=== PATIENT | female | born 1935 | race Caucasian/White ===

== ENCOUNTER 2017-03-24 10:49 | Inpatient (IN) | payer OTHER ==
--- NOTE | 2017-03-24 11:45 | PDOC ---
History of Present Illness - History of Present Illness Initial Comments: 03/24/17 12:10 Patient is an 81 year old female with significant medical hx of asthma and HTN who is presenting to the ED for weakness and dizziness. Patient reports shes had several falls over the past few weeks. The patients first fall occurred 2 weeks ago with reported head trauma. She received a Head CT as an outpatient on 03/17 that was negative (impression below). Family member reports that the patient has had two falls since then. The patient complains of generalized weakness and dizziness but denies any chest pain, nausea, vomiting, fevers, or chills. She also reports decreased appetite and she has not been able to eat; today the patient only had a glass of water and yesterday a small bowl of soup. Today the patient called her PCP who referred her to the ED for hospital admission. Denies pain or syncope. Patient also reports some shortness of breath which she reports is chronic. The patient received a head CT on 03/17/17 as an outpatient which revealed No evidence of acute intracranial pathology as reported by Richie Jimenez MD. PCP Blaise Mcdonnell MD <Yaquelin Cooper - Last Filed: 03/24/17 12:10> <Kaylee Todd - Last Filed: 03/24/17 12:36> - General Chief Complaint: Weakness Stated Complaint: SENT BY PCP Time Seen by Provider: 03/24/17 11:10 Past History <Yaquelin Cooper - Last Filed: 03/24/17 12:10> - Past Medical History HTN: Yes - Psycho/Social/Smoking Cessation Hx Suicidal Ideation: No Smoking History: Former smoker Have you smoked in the past 12 months: No If you are a former smoker, when did you quit?: 40 YEARS AGO Information on smoking cessation initiated: No Hx Alcohol Use: No Drug/Substance Use Hx: No <Kaylee Todd - Last Filed: 03/24/17 12:36> - Past Medical History Allergies/Adverse Reactions: Allergies Allergy/AdvReac Type Severity Reaction Status Date / Time No Known Allergies Allergy Verified 03/24/17 11:04 Home Medications: Ambulatory Orders Albuterol Sulfate [Proair Respiclick] 90 mcg IAR PRN 03/24/17 Amlodipine Besylate 5 mg PO DAILY 03/24/17 Apixaban [Eliquis] 5 mg PO BID 03/24/17 Benazepril HCl 40 mg PO DAILY 03/24/17 Furosemide 20 mg PO DAILY 03/24/17 Metoprolol Tartrate 25 mg PO BID 03/24/17 Omeprazole 20 mg PO DAILY 03/24/17 Raloxifene HCl 60 mg PO DAILY 03/24/17 Simvastatin 20 mg PO DAILY 03/24/17 Review of Systems - Review of Systems Comments:: 03/24/17 12:11 GENERAL/CONSTITUTIONAL: Weakness. No fe.kanwal or chills. HEAD, EYES, EARS, NOSE AND THROAT: No change in vision. No ear pain or discharge. No sore throat. CARDIOVASCULAR: Shortness of breath (chronic) No chest pain. RESPIRATORY: No cough, wheezing, or hemoptysis. GASTROINTESTINAL: No nausea, vomiting, diarrhea or constipation. GENITOURINARY: No dysuria, frequency, or change in urination. MUSCULOSKELETAL: No joint or muscle swelling or pain. No neck or back pain. ENDOCRINE: No increased thirst. No abnormal weight change. SKIN: No rash NEUROLOGIC: Dizziness. No headache, loss of consciousness, or change in strength /sensation. <Yaquelin Cooper - Last Filed: 03/24/17 12:10> *Physical Exam - Vital Signs Last Vital Signs Temp Pulse Resp BP Pulse Ox 65 18 147/69 95 03/24/17 10:59 03/24/17 10:59 03/24/17 10:59 03/24/17 10:59 - Physical Exam Comments: 03/24/17 12:12 GENERAL: Awake, alert, and fully oriented, in no acute distress HEAD: No signs of trauma EYES: PERRLA, EOMI, sclera anicteric, conjunctiva clear ENT: Auricles normal inspection, hearing grossly normal, nares patent, oropharynx clear without exudates. Moist mucosa NECK: Normal ROM, supple, no lymphadenopathy, JVD, or masses LUNGS: Breath sounds equal, clear to auscultation bilaterally. No wheezes, and no crackles HEART: Regular rate and rhythm, normal S1 and S2, no murmurs, rubs or gallops ABDOMEN: Soft, nontender, normoactive bowel sounds. No guarding, no rebound. No masses EXTREMITIES: Normal range of motion, no edema. No clubbing or cyanosis. No cords, erythema, or tenderness NEUROLOGICAL: Essential tremor. Cranial nerves II through XII grossly intact. Normal speech, normal gait SKIN: Warm, Dry, normal turgor, no rashes or lesions noted. HEMATOLOGIC/LYMPHATIC: No anemia, easy bleeding, or history of blood clots. ALLERGIC/IMMUNOLOGIC: No hives or skin allergy. <Yaquelin Cooper - Last Filed: 03/24/17 12:10> - Vital Signs Last Vital Signs Temp Pulse Resp BP Pulse Ox 65 18 147/69 95 03/24/17 10:59 03/24/17 10:59 03/24/17 10:59 03/24/17 10:59 <Kaylee Todd - Last Filed: 03/24/17 12:36> ED Treatment Course - LABORATORY CBC & Chemistry Diagram: 03/24/17 11:50 03/24/17 11:50 - ADDITIONAL ORDERS Additional order review: Laboratory Results 03/24/17 11:25 POC Glucometer [id number] 03/24/17 03/24/17 11:50 11:25 RBC 3.99 MCV 103.2 H MCHC 33.0 RDW 14.2 MPV 8.9 Neutrophils % 62.1 Lymphocytes % 25.4 Monocytes % 10.7 H Eosinophils % 1.1 Basophils % 0.7 POC Glucometer [id number] <Yaquelin Cooper - Last Filed: 03/24/17 12:10> - LABORATORY CBC & Chemistry Diagram: 03/24/17 11:50 03/24/17 11:50 <Kaylee Todd - Last Filed: 03/24/17 12:36> Medical Decision Making - Medical Decision Making 03/24/17 12:32 Patient presents to the ED after sent in by her PMD for frequent falls and decreased PO intake at home. Patient denies complaints except for decreased appetite and lightheadness. I have discussed the case with the patient's primary care doctor, and he feels that the patient is unsafe at home and needs admission for failure to thrive. Recent CT Head negative--patient has not fallen since. Will admit to hospitalist service. Case discussed and accepted by Dr. Lawrence Knight. <Kaylee Todd - Last Filed: 03/24/17 12:36> *DC/Admit/Observation/Transfer - Attestations Scribe Attestion: 03/24/17 12:12 Documentation prepared by Yaquelin Cooper, acting as medical coder for Kaylee Todd MD. <Yaquelin Cooper - Last Filed: 03/24/17 12:10> - Discharge Dispostion Admit: Yes Decision to Admit order Date/Time: 03/24/17 12:35 <Kaylee Todd - Last Filed: 03/24/17 12:36> Diagnosis at time of Disposition: Failure to thrive in adult
[2017-03-24 11:57] LABS: BASOPHIL 0.7 % (0-2.0); EOSINOPHIL 1.1 % (0-4.5); MCH 34.1 pg (25.7-33.7); MEAN CELL VOLUME 103.2 fl (80-96); MEAN PLT VOLUME 8.9 fl (7.5-11.1); NEUTROPHILS 62.1 % (42.8-82.8); PLATELET COUNT 222 K/MM3 (134-434); RDW 14.2 % (11.6-15.6); WHITE BLOOD COUNT 6.1 K/mm3 (4.0-10.0)
[2017-03-24 12:22] LABS: ANION GAP 10 (8-16); BILIRUBIN,TOTAL 0.6 mg/dL (0.2-1.0); CALCIUM 9.2 mg/dL (8.5-10.1); CO2 26 mmol/L (21-32); GLUCOSE,RANDOM 98 mg/dL (74-106); SGOT/AST 27 U/L (15-37); SGPT/ALT 38 U/L (12-78); TOT PROT 7.4 g/dl (6.4-8.2)
[2017-03-24 12:24] LABS: ALK PHOS 73 U/L (45-117); TROPONIN I < 0.02 ng/ml (0.00-0.05)
[2017-03-24 13:04] LABS: THYROID STIMULATING HORMONE 2.96 uIU/ml (0.358-3.74)
[2017-03-24] MEDS ORDERED: PATIENT'S OWN MEDICATION (NON-FORMULARY) (Albuterol Sulfate [Proair Respiclick] 90 MCG) IAR SCH (14:00)
[2017-03-24] MEDS: ACETAMINOPHEN 325 MG TABLET (FP) PO PRN (14:13)
--- NOTE | 2017-03-24 18:26 | CON.CARD ---
Cardiology Consult (text) - Consultation Consultation Note: 81 yo with h/o of afib on eliquis, htn, asthma who presents s/p fall/syncope. Patient reports shes had 3 falls in the past 2 weeks. all episodes appear to be syncopal with no prodrome. She also reports worsened weakness since February with + orthopnea (cough with lying down), worsened chronic sanchez and early satiety. at baseline can't walk uphill. Currently can walk only a half block. Chronic palps stable. Intermitent Le edema currently resolved. no cp, bleeding on eliquis, transient neurologic symptoms no f/c/s, n/v/d, headache, rashes, visual disturbances, congestion. recently returned from winter in [place] pmhx/pxhx: per hpi social hx: Former smoker fam hx: no premature cad, ros: per hpi Ambulatory Orders Albuterol Sulfate [Proair Respiclick] 90 mcg IAR PRN 03/24/17 Amlodipine Besylate 5 mg PO DAILY 03/24/17 Apixaban [Eliquis] 5 mg PO BID 03/24/17 Benazepril HCl 40 mg PO DAILY 03/24/17 Furosemide 20 mg PO DAILY 03/24/17 Metoprolol Tartrate 25 mg PO BID 03/24/17 Omeprazole 20 mg PO DAILY 03/24/17 Raloxifene HCl 60 mg PO DAILY 03/24/17 Simvastatin 20 mg PO DAILY 03/24/17 Current Medications Acetaminophen (Tylenol -) 650 mg PO Q4H PRN PRN Reason: FEVER OR PAIN Last Admin: 03/24/17 14:13 Dose: 650 mg Amlodipine Besylate (Norvasc -) 5 mg PO DAILY [facility] Aspirin (Asa -) 81 mg PO DAILY [facility] Atorvastatin Calcium (Lipitor -) 10 mg PO HS [facility] Furosemide (Lasix -) 20 mg PO DAILY [facility] Heparin Sodium (Porcine) (Heparin -) 5,000 unit SQ BID [facility] Lisinopril (Prinivil) 40 mg PO DAILY [facility] Metoprolol Tartrate (Lopressor -) 25 mg PO BID [facility] Non-Formulary Medication (Albuterol Sulfate [Proair Respiclick]) 90 mcg IAR PRN [facility] Non-Formulary Medication (Raloxifene Hcl [Raloxifene Hcl]) 60 mg PO DAILY [facility] Pantoprazole Sodium (Protonix -) 20 mg PO DAILY [facility] Vital Signs - 24 hr 03/24/17 03/24/17 03/24/17 10:59 11:05 15:42 Temperature 97.8 F 98.4 F Pulse Rate 65 Pulse Rate [ 68 68 Left Apical] Respiratory 18 16 16 Rate Blood Pressure 147/69 Blood Pressure 174/89 158/94 [Left Arm] O2 Sat by Pulse 95 96 96 Oximetry (%) Intake & Output 03/22/17 03/23/17 03/24/17 03/25/17 07:59 07:59 07:59 07:59 Weight 200 lb nad, calm bruising over face jvd flat, neck supple bibasilar crackles, nl effort irregularly irregulary. soft 1/6 sys murmur at rusb + bs soft nt nd ext without e/c/c aaox3 no jaundice, diaphoresis no carotid bruits CBC, BMP 03/24/17 11:50 03/24/17 11:50 Laboratory Tests 03/24/17 11:50 Total Bilirubin 0.6 AST 27 ALT 38 Alkaline Phosphatase 73 Creatine Kinase 292 H CK-MB (CK-2) 3.586 Troponin I < 0.02 Albumin 4.0 TSH 2.96 ekg: afib. low voltage qrs. Non-specific t wave ab. no acute ischemic changes cxr: no acute abnormalities per report. by my review: poor inspiration, poor visualization of left base (can't rule out effusion) 81 yo with h/o of afib on eliquis, htn, asthma who presents s/p fall/syncope. fall/syncope - no prodrome with facial bruising on exam. Would recommend continous telemetry monitoring to eval for arrhythmia - echo, carotid ultrasound - pt - leonardo - othostatic vitals, monitor for hypotension. afib - rate controlled on home metoprolol, con't - con't eliquis now while syncopal work up/fall risk assessment ongoing. Then reassess risk/benefit of AC. weakness - pt with worsening sanchez, early satiety and rales on exam which appear consistent with volume overload. - patient on lasix at home ? for venous insufficiency, no history of heart failure. - Would evaluate for heart failure as etiology with echo, bnp. give trial of IV lasix in am. - infectious and further work up per pmd. HTN - reasonable control for age, continue current meds. But unclear if she received her medications. monitor for hypotension and need to downtitrate current regimen. HL - statin
[2017-03-24 20:31] VITALS: BMI 31.8
[2017-03-24] MEDS: ATORVASTATIN CA 10 MG TABLET (FP) PO SCH (21:55)
[2017-03-24] MEDS: METOPROLOL TARTRATE 25 MG TABLET (FP) PO SCH (21:55)
[2017-03-24 22:01] LABS: URINE APPEARANCE SLCLOUDY; URINE BILIRUBIN NEGATIVE (NEGATIVE); URINE BLOOD NEGATIVE (NEGATIVE); URINE COLOR LTYELLOW; URINE GLUCOSE (UA) NEGATIVE (NEGATIVE); URINE KETONE NEGATIVE (NEGATIVE); URINE NITRITE NEGATIVE (NEGATIVE); URINE PROTEIN NEGATIVE (NEGATIVE); URINE UROBILINOGEN NEGATIVE E.U./dl (0.2-1.0)
[2017-03-24 22:02] LABS: URINE LEUK ESTERASE TRACE (NEGATIVE)
[2017-03-24 22:03] LABS: URINE BACTERIA RARE /hpf (NONE SEEN); URINE MUCUS RARE; URINE RBC 1 /hpf (0-3); URINE WBC 33 /hpf (3-5)
[2017-03-25] MEDS: ACETAMINOPHEN 325 MG TABLET (FP) PO PRN (05:23)
[2017-03-25 07:09] LABS: BASOPHIL 0.7 % (0-2.0); MCH 34.7 pg (25.7-33.7); MCHC 33.7 g/dl (32.0-36.0); MEAN PLT VOLUME 9.2 fl (7.5-11.1); NEUTROPHILS 64.3 % (42.8-82.8); PLATELET COUNT 210 K/MM3 (134-434); RDW 14.3 % (11.6-15.6); WHITE BLOOD COUNT 6.9 K/mm3 (4.0-10.0)
[2017-03-25 07:42] LABS: CALCIUM 8.9 mg/dL (8.5-10.1)
[2017-03-25 07:48] LABS: ALBUMIN 3.5 g/dl (3.4-5.0); BILIRUBIN,TOTAL 0.6 mg/dL (0.2-1.0); COCKROFT - GAULT 62.1435; TOT PROT 6.5 g/dl (6.4-8.2)
[2017-03-25] MEDS ORDERED: HEPARIN NA (PORCINE) 5,000 UNITS/ML 1ML VIAL IVPUSH PRN (08:29)
[2017-03-25] MEDS ORDERED: HEPARIN - 25,000 UNIT in SODIUM CHLORIDE 495 ML IV SCH (08:30)
[2017-03-25] MEDS ORDERED: HEPARIN NA (PORCINE) 5,000 UNITS/ML 1ML VIAL SQ SCH (09:00)
[2017-03-25] MEDS ORDERED: ASPIRIN 81 MG CHEWABLE TABLETS PO SCH (10:00)
[2017-03-25] MEDS ORDERED: PATIENT'S OWN MEDICATION (NON-FORMULARY) (Raloxifene Hcl [Raloxifene Hcl] 60 MG) PO SCH (10:00)
[2017-03-25] MEDS ORDERED: PATIENT'S OWN MEDICATION (NON-FORMULARY) (Benazepril Hcl [Benazepril Hcl] 40 MG) PO SCH (10:00)
[2017-03-25] MEDS ORDERED: FUROSEMIDE 20 MG TABLET (FP) PO SCH (10:00)
[2017-03-25] MEDS ORDERED: PATIENT'S OWN MEDICATION (NON-FORMULARY) (Simvastatin [Simvastatin] 20 MG) PO SCH (10:00)
[2017-03-25] MEDS ORDERED: PATIENT'S OWN MEDICATION (NON-FORMULARY) (Omeprazole 20 MG) PO SCH (10:00)
[2017-03-25] MEDS: METOPROLOL TARTRATE 25 MG TABLET (FP) PO SCH ×2 (10:35→21:46)
[2017-03-25] MEDS: LISINOPRIL 20 MG TABLET (FP) PO SCH (10:36)
[2017-03-25] MEDS: amLODIPine BESYLATE 5 MG TABLET (FP) PO SCH (10:36)
[2017-03-25] MEDS: PANTOPRAZOLE 20 MG TABLET (FP) PO SCH (10:36)
[2017-03-25] MEDS: FUROSEMIDE 40 MG/4 ML INJECTABLE VIAL IVPUSH SCH (10:40)
--- NOTE | 2017-03-25 10:51 | HP ---
Admitting History and Physical - Primary Care Physician PCP: Blaise Mcdonnell - Admission Chief Complaint: frequent falls History of Present Illness: ER HISTORY - History of Present Illness Initial Comments: 03/24/17 12:10 Patient is an 81 year old female with significant medical hx of asthma and HTN who is presenting to the ED for weakness and dizziness. Patient reports shes had several falls over the past few weeks. The patients first fall occurred 2 weeks ago with reported head trauma. She received a Head CT as an outpatient on 03/17 that was negative (impression below). Family member reports that the patient has had two falls since then. The patient complains of generalized weakness and dizziness but denies any chest pain, nausea, vomiting, fevers, or chills. She also reports decreased appetite and she has not been able to eat; today the patient only had a glass of water and yesterday a small bowl of soup. Today the patient called her PCP who referred her to the ED for hospital admission. Denies pain or syncope. Patient also reports some shortness of breath which she reports is chronic. The patient received a head CT on 03/17/17 as an outpatient which revealed No evidence of acute intracranial pathology as reported by Richie iJmenez MD. PCP Blaise Mcdonnell MD Pt examined by me in ER Spoke with Dr Mcdonnell Pt has been having frequent falls, head injuries. No LOC.No headaches, chest pain, palpitations, dizziness. at bedside History Source: Patient, Family Member, Medical Record Limitations to Obtaining History: No Limitations - Past Medical History Cardiovascular: Yes: AFIB, HTN Pulmonary: Yes: Asthma - Smoking History Smoking history: Former smoker Have you smoked in the past 12 months: No If you are a former smoker, when did you quit?: 40 YEARS AGO - Alcohol/Substance Use Hx Alcohol Use: No Home Medications - Allergies Allergies/Adverse Reactions: Allergies Allergy/AdvReac Type Severity Reaction Status Date / Time No Known Allergies Allergy Verified 03/24/17 11:04 - Home Medications Home Medications: Ambulatory Orders Albuterol Sulfate [Proair Respiclick] 90 mcg IAR PRN 03/24/17 Amlodipine Besylate 5 mg PO DAILY 03/24/17 Apixaban [Eliquis] 5 mg PO BID 03/24/17 Benazepril HCl 40 mg PO DAILY 03/24/17 Furosemide 20 mg PO DAILY 03/24/17 Metoprolol Tartrate 25 mg PO BID 03/24/17 Omeprazole 20 mg PO DAILY 03/24/17 Raloxifene HCl 60 mg PO DAILY 03/24/17 Simvastatin 20 mg PO DAILY 03/24/17 Review of Systems - Review of Systems Constitutional: denies: Chills, Fever Cardiovascular: denies: Chest Pain, Palpitations Physical Examination Vital Signs: Vital Signs Temperature 98.2 F 03/25/17 09:52 Pulse Rate 70 03/25/17 09:52 Respiratory Rate 18 03/25/17 09:52 Blood Pressure 154/72 03/25/17 09:52 O2 Sat by Pulse Oximetry (%) 98 03/24/17 23:00 Constitutional: Yes: No Distress, Calm Cardiovascular: Yes: Pulse Irregular Respiratory: Yes: Diminished Gastrointestinal: Yes: Normal Bowel Sounds, Soft, Abdomen, Obese. No: Distention, Tenderness Edema: Yes Edema: LLE: Trace, RLE: Trace Neurological: Yes: Alert, Tremors Psychiatric: Yes: Alert, Oriented Labs: CBC, BMP 03/25/17 05:35 03/25/17 05:35 Imaging - Results Chest X-ray: Image Reviewed (no congestion) EKG: Image Reviewed Problem List - Problems (1) Failure to thrive in adult Code(s): R62.7 - ADULT FAILURE TO THRIVE (2) Frequent falls Code(s): R29.6 - REPEATED FALLS (3) Afib Code(s): I48.91 - UNSPECIFIED ATRIAL FIBRILLATION (4) Unsteady gait Code(s): R26.81 - UNSTEADINESS ON FEET Assessment/Plan PLAN spoke with Cardiology Will dc Heparin drip Pt has frequent falls-- high risk of intracranial bleeding Start ASA 81 mg daily, dc Anay spoke with rate control check Echo for LV function will need rehab placement pt has tremors - Possible Parkinsons? NEUROLOGY EVAL PT eval Heparin sc for DVT prophylaxis
--- NOTE | 2017-03-25 12:00 | PN ---
Progress Note, Physician History of Present Illness: No CV complaints No palps, CP dyspena - Current Medication List Current Medications: Active Medications Acetaminophen (Tylenol -) 650 mg PO Q4H PRN PRN Reason: FEVER OR PAIN Last Admin: 03/25/17 05:23 Dose: 650 mg Amlodipine Besylate (Norvasc -) 5 mg PO DAILY [facility] Last Admin: 03/25/17 10:36 Dose: 5 mg Aspirin (Asa -) 81 mg PO DAILY [facility] Atorvastatin Calcium (Lipitor -) 10 mg PO HS [facility] Last Admin: 03/24/17 21:55 Dose: 10 mg Furosemide (Lasix Injection -) 20 mg IVPUSH DAILY [facility] Last Admin: 03/25/17 10:40 Dose: 20 mg Lisinopril (Prinivil) 40 mg PO DAILY [facility] Last Admin: 03/25/17 10:36 Dose: 40 mg Metoprolol Tartrate (Lopressor -) 25 mg PO BID [facility] Last Admin: 03/25/17 10:35 Dose: 25 mg Non-Formulary Medication (Albuterol Sulfate [Proair Respiclick]) 90 mcg IAR PRN [facility] Non-Formulary Medication (Raloxifene Hcl [Raloxifene Hcl]) 60 mg PO DAILY [facility] Pantoprazole Sodium (Protonix -) 20 mg PO DAILY [facility] Last Admin: 03/25/17 10:36 Dose: 20 mg - Objective Vital Signs: Vital Signs Temperature 98.2 F 03/25/17 09:52 Pulse Rate 70 03/25/17 09:52 Respiratory Rate 18 03/25/17 09:52 Blood Pressure 154/72 03/25/17 09:52 O2 Sat by Pulse Oximetry (%) 98 03/24/17 23:00 Constitutional: Yes: No Distress Eyes: Yes: Other (periorbital ecchymosis (right)) Neck: Yes: WNL Cardiovascular: Yes: Pulse Irregular Respiratory: Yes: CTA Bilaterally Edema: Yes Edema: LLE: Trace, RLE: Trace Labs: CBC, BMP 03/25/17 05:35 03/25/17 05:35 Assessment/Plan 81 yo with h/o of afib on eliquis, htn, asthma who presents s/p fall/syncope. fall/syncope - no prodrome with facial bruising on exam. Would recommend continous telemetry monitoring to eval for arrhythmia - echo pending, carotid ultrasound without significant carotid stenosis afib - rate controlled on home metoprolol, con't - Off eliquis now while syncopal work up/fall risk assessment ongoing. Needs reassessment risk/benefit of AC given frequent falls.
--- NOTE | 2017-03-25 15:02 | CON.NEURO ---
Consult Consult Specialty:: Neurology-Peter PROCTOR Reason for Consultation:: Falls/Syncope - History of Present Illness Chief Complaint: Multiple Falls History of Present Illness: 81 yo with h/o of afib on eliquis, htn, asthma who presents s/p fall/syncope. Eliquis discontinued in hospital. Patient reports shes had 3 falls in the past 2 weeks. She reports 2 years ago she perceived unsteadiness of gait and started using a cane. She describes first falling 2 weeks ago, "felt dizzy and fell forwards, it ocurred twice subsequently, after fall there was no confusion/incontinence.All episodes appear to be syncopal with no prodrome. She also reports worsened weakness since February with + orthopnea (cough with lying down), worsened chronic sanchez and early satiety.At baseline can't walk uphill. Currently can walk only a half block. Chronic palps stable. Intermitent Le edema currently resolved. Pt. denies numbness/paresthesias in legs, denies chest pain, headaches, visual disturbances and all other neurologic symptoms. Recent CT head is reported "negative" in chart and she has not fallen since. - Alcohol/Substance Use Hx Alcohol Use: No - Smoking History Smoking history: Former smoker Have you smoked in the past 12 months: No If you are a former smoker, when did you quit?: 40 YEARS AGO Home Medications - Allergies Allergies/Adverse Reactions: Allergies Allergy/AdvReac Type Severity Reaction Status Date / Time No Known Allergies Allergy Verified 03/24/17 11:04 - Home Medications Home Medications: Ambulatory Orders Albuterol Sulfate [Proair Respiclick] 90 mcg IAR PRN 03/24/17 Amlodipine Besylate 5 mg PO DAILY 03/24/17 Apixaban [Eliquis] 5 mg PO BID 03/24/17 Benazepril HCl 40 mg PO DAILY 03/24/17 Furosemide 20 mg PO DAILY 03/24/17 Metoprolol Tartrate 25 mg PO BID 03/24/17 Omeprazole 20 mg PO DAILY 03/24/17 Raloxifene HCl 60 mg PO DAILY 03/24/17 Simvastatin 20 mg PO DAILY 03/24/17 Physical Exam-Neuro Vital Signs: Vital Signs Temperature 97.7 F 03/25/17 13:51 Pulse Rate 74 03/25/17 13:51 Respiratory Rate 18 03/25/17 13:51 Blood Pressure 126/66 03/25/17 13:51 O2 Sat by Pulse Oximetry (%) 98 03/24/17 23:00 Labs: CBC, BMP 03/25/17 05:35 03/25/17 05:35 - Neuro Exam Dominant Hand: Right Mini Mental Exam: Alert, well oriented, without aphasia. Her concentration is impaired, she tends to forget what she wants to say at times. Rayne recall her phone #, recalls 1/3 objects in 1 and 5 minutes. Cranial Nerves II-XII Intact: No (Slight old left facial droop) DTR's: 0 Left Achilles, 0 Right Achilles, 1+ Left Bicep (+Palmar reflex), 1+ Right Bicep, 1+ Left Tricep, 1+ Right Tricep, 1+ Left Brachioradialis, 1+ Right Brachioradialis Response to light touch: Normal Response to pain prick: Normal Movement Disorders: Tremors Motor Strength: 5/5: Right Arm, Left Arm, Left Leg (LLE 5/5 throughout except left quadriceps is 4/5. + bilateral UE postural tremors) Gait: Other (Wide based, unsteady, left foot is slightly externally rotated.) NIH Stroke Scale - Total Score NIH Stroke Scale Score: 0 Assessment/Plan Pt. with falls, given her description of falls and hx. of afib likely falling due to syncopal episodes. She has slight left leg weakness that is old, not cause of her falls but certainly a precipitating factor. Suggest:MRI brain without contrast to see if she has had infarcts. Cont. ASA Thank you, Janeen Green MD
[2017-03-25] MEDS: ATORVASTATIN CA 10 MG TABLET (FP) PO SCH (21:46)
[2017-03-25] MEDS: HEPARIN NA (PORCINE) 5,000 UNITS/ML 1ML VIAL SQ SCH (21:47)
--- NOTE | 2017-03-26 08:59 | PN ---
Progress Note, Physician Chief Complaint: Appears sleepy today as per nurse, she did not sleep well last night , trying to get OOB to use the bathroom on her own per nurse notes at side pt c/o constipation - Current Medication List Current Medications: Active Medications Acetaminophen (Tylenol -) 650 mg PO Q4H PRN PRN Reason: FEVER OR PAIN Last Admin: 03/25/17 05:23 Dose: 650 mg Amlodipine Besylate (Norvasc -) 5 mg PO DAILY [facility] Last Admin: 03/25/17 10:36 Dose: 5 mg Aspirin (Asa -) 81 mg PO DAILY [facility] Atorvastatin Calcium (Lipitor -) 10 mg PO HS [facility] Last Admin: 03/25/17 21:46 Dose: 10 mg Furosemide (Lasix Injection -) 20 mg IVPUSH DAILY [facility] Last Admin: 03/25/17 10:40 Dose: 20 mg Heparin Sodium (Porcine) (Heparin -) 5,000 unit SQ BID [facility] Last Admin: 03/25/17 21:47 Dose: 5,000 unit Lisinopril (Prinivil) 40 mg PO DAILY [facility] Last Admin: 03/25/17 10:36 Dose: 40 mg Metoprolol Tartrate (Lopressor -) 25 mg PO BID [facility] Last Admin: 03/25/17 21:46 Dose: 25 mg Non-Formulary Medication (Albuterol Sulfate [Proair Respiclick]) 90 mcg IAR PRN [facility] Non-Formulary Medication (Raloxifene Hcl [Raloxifene Hcl]) 60 mg PO DAILY [facility] Pantoprazole Sodium (Protonix -) 20 mg PO DAILY [facility] Last Admin: 03/25/17 10:36 Dose: 20 mg - Objective Vital Signs: Vital Signs Temperature 98.4 F 03/26/17 02:35 Pulse Rate 71 03/26/17 06:00 Respiratory Rate 16 03/26/17 06:00 Blood Pressure 123/71 03/26/17 06:00 O2 Sat by Pulse Oximetry (%) 99 03/25/17 22:07 Constitutional: Yes: No Distress, Other (decreased ecchymosis rt periorbital region) Cardiovascular: Yes: Pulse Irregular Respiratory: Yes: CTA Bilaterally Gastrointestinal: Yes: Normal Bowel Sounds, Soft. No: Distention, Tenderness Edema: No Labs: CBC, BMP 03/25/17 05:35 03/25/17 05:35 Problem List - Problems (1) Failure to thrive in adult Code(s): R62.7 - ADULT FAILURE TO THRIVE (2) Frequent falls Code(s): R29.6 - REPEATED FALLS (3) Afib Code(s): I48.91 - UNSPECIFIED ATRIAL FIBRILLATION (4) Unsteady gait Code(s): R26.81 - UNSTEADINESS ON FEET Assessment/Plan PLAN Pt has frequent falls-- high risk of intracranial bleeding Started on ASA 81 mg daily, dc Anay, risk of bleeding greater than benefits here in this case and is well aware of that spoke with rate control check Echo for LV function will need rehab placement NEUROLOGY EVAL noted -- MRI ordered PT eval Heparin sc for DVT prophylaxis
--- NOTE | 2017-03-26 09:33 | PN ---
Progress Note, Physician History of Present Illness: No CV events. Tele Afib 60s - Current Medication List Current Medications: Active Medications Acetaminophen (Tylenol -) 650 mg PO Q4H PRN PRN Reason: FEVER OR PAIN Last Admin: 03/25/17 05:23 Dose: 650 mg Amlodipine Besylate (Norvasc -) 5 mg PO DAILY [facility] Last Admin: 03/25/17 10:36 Dose: 5 mg Aspirin (Asa -) 81 mg PO DAILY [facility] Atorvastatin Calcium (Lipitor -) 10 mg PO HS [facility] Last Admin: 03/25/17 21:46 Dose: 10 mg Furosemide (Lasix Injection -) 20 mg IVPUSH DAILY [facility] Last Admin: 03/25/17 10:40 Dose: 20 mg Heparin Sodium (Porcine) (Heparin -) 5,000 unit SQ BID [facility] Last Admin: 03/25/17 21:47 Dose: 5,000 unit Lisinopril (Prinivil) 40 mg PO DAILY [facility] Last Admin: 03/25/17 10:36 Dose: 40 mg Metoprolol Tartrate (Lopressor -) 25 mg PO BID [facility] Last Admin: 03/25/17 21:46 Dose: 25 mg Non-Formulary Medication (Albuterol Sulfate [Proair Respiclick]) 90 mcg IAR PRN [facility] Non-Formulary Medication (Raloxifene Hcl [Raloxifene Hcl]) 60 mg PO DAILY [facility] Pantoprazole Sodium (Protonix -) 20 mg PO DAILY [facility] Last Admin: 03/25/17 10:36 Dose: 20 mg - Objective Vital Signs: Vital Signs Temperature 98.4 F 03/26/17 02:35 Pulse Rate 71 03/26/17 06:00 Respiratory Rate 16 03/26/17 06:00 Blood Pressure 123/71 03/26/17 06:00 O2 Sat by Pulse Oximetry (%) 99 03/25/17 22:07 Constitutional: Yes: No Distress (lethargic this AM but arrousable) Eyes: Yes: WNL HENT: Yes: WNL Neck: Yes: WNL Cardiovascular: Yes: Pulse Irregular Respiratory: Yes: CTA Bilaterally Gastrointestinal: Yes: WNL Edema: Yes Edema: LLE: 1+, RLE: 1+ Labs: CBC, BMP 03/25/17 05:35 03/25/17 05:35 Assessment/Plan 81 yo with h/o of afib on eliquis, htn, asthma who presents s/p fall/syncope. fall/syncope - no prodrome with facial bruising on exam. Would recommend continous telemetry monitoring to eval for arrhythmia - echo pending, carotid ultrasound without significant carotid stenosis afib - rate controlled on home metoprolol, con't - Off eliquis now while syncopal work up/fall risk assessment ongoing. -This patient is high risk for fall and therefore needs reassessment risk/ benefit of AC given frequent falls.
[2017-03-26] MEDS: ASPIRIN 81 MG CHEWABLE TABLETS PO SCH (09:58)
[2017-03-26] MEDS: HEPARIN NA (PORCINE) 5,000 UNITS/ML 1ML VIAL SQ SCH ×2 (09:58→21:25)
[2017-03-26] MEDS: METOPROLOL TARTRATE 25 MG TABLET (FP) PO SCH ×2 (09:59→21:25)
[2017-03-26] MEDS: FUROSEMIDE 40 MG/4 ML INJECTABLE VIAL IVPUSH SCH (09:59)
[2017-03-26] MEDS: PANTOPRAZOLE 20 MG TABLET (FP) PO SCH (09:59)
[2017-03-26] MEDS: LISINOPRIL 20 MG TABLET (FP) PO SCH (09:59)
[2017-03-26] MEDS: amLODIPine BESYLATE 5 MG TABLET (FP) PO SCH (09:59)
[2017-03-26] MEDS ORDERED: ALBUTEROL SO4 0.083% IH SOL 2.5 MG/3 ML VIAL.NEB. NEB PRN (10:45)
[2017-03-26] MEDS: POLYETHYLENE GLYCOL 3350 119 GM BTL PO SCH (12:10)
--- NOTE | 2017-03-26 16:35 | EKG ---
Test Reason : Blood Pressure : / mmHG Vent. Rate : 078 BPM Atrial Rate : 090 BPM P-R Int : 000 ms QRS Dur : 088 ms QT Int : 418 ms P-R-T Axes : 000 077 -12 degrees QTc Int : 476 ms POOR DATA QUALITY, INTERPRETATION MAY BE ADVERSELY AFFECTED PROBABLE NORMAL SINUS RHYTHM WITH SINUS ARRHYTHMIA LOW VOLTAGE QRS NONSPECIFIC T WAVE ABNORMALITY ABNORMAL ECG WHEN COMPARED WITH ECG OF 10-MAR-2006 09:41, BASELINE ARTIFACT MAKES COMPARISON PROBLEMATIC; SUGGEST REPEAT STUDY NONSPECIFIC T WAVE ABNORMALITY NOW EVIDENT IN LATERAL LEADS Confirmed by CHARLIE SAVAGE MD ([id number]) on 03/26/2017 4:34:59 PM Referred By: Confirmed By:CHARLIE SAVAGE MD
[2017-03-26] MEDS: ATORVASTATIN CA 10 MG TABLET (FP) PO SCH (21:25)
[2017-03-27 07:36] LABS: MCH 34.7 pg (25.7-33.7); MCHC 33.8 g/dl (32.0-36.0); MEAN CELL VOLUME 102.8 fl (80-96); MEAN PLT VOLUME 9.3 fl (7.5-11.1); PLATELET COUNT 195 K/MM3 (134-434); RDW 14.1 % (11.6-15.6); WHITE BLOOD COUNT 6.4 K/mm3 (4.0-10.0)
[2017-03-27 08:00] LABS: CALCIUM 8.9 mg/dL (8.5-10.1)
[2017-03-27 08:01] LABS: CREATININE 0.9 mg/dL (0.55-1.02)
--- NOTE | 2017-03-27 08:39 | PN ---
Progress Note (short form) - Note Progress Note: Subjective Patient seen and examined. Chart reviewed. Comfortable. Denies pain. Objective Last Vital Signs Temp Pulse Resp BP Pulse Ox 98.7 F 74 20 176/71 96 03/27/17 02:00 03/27/17 05:47 03/27/17 05:47 03/27/17 05:47 03/26/17 19:51 CBC, BMP 03/27/17 05:35 03/27/17 05:35 Laboratory Results - last 24 hr 03/27/17 03/27/17 03/27/17 05:35 05:35 05:35 WBC 6.4 RBC 3.86 Hgb 13.4 Hct 39.7 MCV 102.8 H MCHC 33.8 RDW 14.1 Plt Count 195 MPV 9.3 PTT (Actin FS) 30.1 Sodium 145 Potassium 3.7 Chloride 108 H Carbon Dioxide 26 Anion Gap 11 BUN 25 H D Creatinine 0.9 Random Glucose 93 Calcium 8.9 B-Natriuretic Peptide 03/27/17 07:00 WBC RBC Hgb Hct MCV MCHC RDW Plt Count MPV PTT (Actin FS) Sodium Potassium Chloride Carbon Dioxide Anion Gap BUN Creatinine Random Glucose Calcium B-Natriuretic Peptide Cancelled Physical Exam Constitutional: Yes: No Distress, Other (decreased ecchymosis rt periorbital region) Cardiovascular: Yes: Pulse Irregular Respiratory: Yes: CTA Bilaterally Gastrointestinal: Yes: Normal Bowel Sounds, Soft. No: Distention, Tenderness Edema: No Neuro: Alert and awake. Problem List - Problems (1) Failure to thrive in adult Code(s): R62.7 - ADULT FAILURE TO THRIVE (2) Frequent falls Code(s): R29.6 - REPEATED FALLS (3) Afib Code(s): I48.91 - UNSPECIFIED ATRIAL FIBRILLATION (4) Unsteady gait Code(s): R26.81 - UNSTEADINESS ON FEET Assessment and Plan Frequent falls. High risk of bleed. Agree with d/c Eliquis. Fall precautions. PT. MRI brain noted-- no acute CVA. Echo pending. Will need short term rehab Will follow. Discussed with nursing staff also. Documentation prepared by Neeru Alvarez, acting as a medical technologist prn for Lawrence Knight MD.
--- NOTE | 2017-03-27 09:16 | PN ---
Progress Note, Physician Chief Complaint: syncope History of Present Illness: no cp, sob, palpitations, presyncope ex cigs - Current Medication List Current Medications: Active Medications Acetaminophen (Tylenol -) 650 mg PO Q4H PRN PRN Reason: FEVER OR PAIN Last Admin: 03/25/17 05:23 Dose: 650 mg Albuterol Sulfate (Ventolin 0.083% Nebulizer Soln -) 1 amp NEB Q4H PRN PRN Reason: SHORT OF BREATH/WHEEZING Amlodipine Besylate (Norvasc -) 5 mg PO DAILY [facility] Last Admin: 03/26/17 09:59 Dose: 5 mg Aspirin (Asa -) 81 mg PO DAILY [facility] Last Admin: 03/26/17 09:58 Dose: 81 mg Atorvastatin Calcium (Lipitor -) 10 mg PO HS [facility] Last Admin: 03/26/17 21:25 Dose: 10 mg Furosemide (Lasix Injection -) 20 mg IVPUSH DAILY [facility] Last Admin: 03/26/17 09:59 Dose: 20 mg Heparin Sodium (Porcine) (Heparin -) 5,000 unit SQ BID [facility] Last Admin: 03/26/17 21:25 Dose: 5,000 unit Lisinopril (Prinivil) 40 mg PO DAILY [facility] Last Admin: 03/26/17 09:59 Dose: 40 mg Metoprolol Tartrate (Lopressor -) 25 mg PO BID [facility] Last Admin: 03/26/17 21:25 Dose: 25 mg Pantoprazole Sodium (Protonix -) 20 mg PO DAILY [facility] Last Admin: 03/26/17 09:59 Dose: 20 mg Polyethylene Glycol (Miralax (For Daily Use) -) 17 gm PO DAILY [facility] Last Admin: 03/26/17 12:10 Dose: 17 gm - Objective Vital Signs: Vital Signs Temperature 98.7 F 03/27/17 02:00 Pulse Rate 74 03/27/17 05:47 Respiratory Rate 20 03/27/17 05:47 Blood Pressure 176/71 03/27/17 05:47 O2 Sat by Pulse Oximetry (%) 96 03/26/17 19:51 Constitutional: Yes: No Distress, Calm Eyes: No: Sclera Icterus HENT: No: Nasal Congestion Cardiovascular: Yes: Regular Rate and Rhythm, S1, S2, Other (PMI non diplaced). No: Gallop, Murmur Respiratory: Yes: CTA Bilaterally. No: Accessory Muscle Use, Rales, Wheezes Gastrointestinal: Yes: Normal Bowel Sounds, Soft. No: Tenderness Musculoskeletal: Yes: Other (No kyphosis) Extremities: No: Cold Edema: No Integumentary: No: Jaundice Neurological: Yes: Alert, Oriented (x3) Psychiatric: No: Agitated Labs: CBC, BMP 03/27/17 05:35 03/27/17 05:35 - ....Imaging EKG: Other (tele: AF good HRs (50s at times)) Assessment/Plan 81 yo with h/o of afib on eliquis, htn, asthma who presents s/p fall/syncope. fall/syncope - provides hx of mult (3) recent falls--once with fleeting prodrome "something not right", twice no prodrome--all 3 occurred when kathie from recliner or bed during nocturnal hours, ? if was asleep at the time (unwitnessed), with no head trauma on those occasions to suggest concussion with retrograde amnesia - approx 4-5 wks ago in [place] started on new dementia med - statistically this is most likely orthostatic hypotension, ? exacerbated by recent med changes--only 8 mmHg BP drop here, however will reassess orthostatics check tonight - no neuro cause suspected per their input - carotids unremarkable, MRI brain no acute infarct or bleed - echo pending - cont tele monitoring--if no etiology found, will do outpt 30 day event monitor poor balance: - chronic problem, uses cane--worsened of late per niece and , began using walker at home - syncope's are likely unrelated to balance, however the extent of her falls risk related to poor balance remains undefined afib - rate controlled on home metoprolol (lopressor 25 bid), rarely 50s during afternoon as well as early am - very unlikely contributing to syncope but will decr to lopressor 12.5 bid - eliquis held here, while w/u for cause of repeated recent falls/syncope is ongoing - if profoundly orthostatic when VSs measured/documented, will need to hold until bp drops are mitigated with meds/hydration - if P.T. finds significant gait imbalance and feels she is at high risk for falls, may need to cont holding AC until she does adequate rehab/precautions are in place and she is deemed stable - can consider LA appendage closure (Watchman) if safe falls environment can be guaranteed during 6 wks of AC, then 6 wks of DAPT post-procedure--defer for now while assess clinical course and findings here - pt and family advised by me should f/u with us after hospital d/c for ongoing reassessment of AC and falls risk, they verbalize understanding HTN - mostly controlled here - same meds (amlodipine, NEDRA) HL - statin per home regimen
[2017-03-27] MEDS: METOPROLOL TARTRATE 25 MG TABLET (FP) PO SCH ×2 (10:39→21:35)
[2017-03-27] MEDS: POLYETHYLENE GLYCOL 3350 119 GM BTL PO SCH (10:39)
[2017-03-27] MEDS: PANTOPRAZOLE 20 MG TABLET (FP) PO SCH (10:39)
[2017-03-27] MEDS: amLODIPine BESYLATE 5 MG TABLET (FP) PO SCH (10:40)
[2017-03-27] MEDS: FUROSEMIDE 40 MG/4 ML INJECTABLE VIAL IVPUSH SCH (10:40)
[2017-03-27] MEDS: ASPIRIN 81 MG CHEWABLE TABLETS PO SCH (10:40)
[2017-03-27] MEDS: LISINOPRIL 20 MG TABLET (FP) PO SCH (10:40)
[2017-03-27] MEDS: HEPARIN NA (PORCINE) 5,000 UNITS/ML 1ML VIAL SQ SCH ×2 (10:40→21:36)
--- NOTE | 2017-03-27 19:20 | PN ---
Progress Note (short form) - Note Progress Note: HPI: 81 yo with h/o of afib on eliquis, htn, asthma who presents s/p fall/ syncope. Eliquis discontinued in hospital. Patient reports shes had 3 falls in the past 2 weeks. She reports 2 years ago she perceived unsteadiness of gait and started using a cane. She describes first falling 2 weeks ago, "felt dizzy and fell forwards, it ocurred twice subsequently, after fall there was no confusion/incontinence.All episodes appear to be syncopal with no prodrome. She also reports worsened weakness since February with + orthopnea (cough with lying down), worsened chronic sanchez and early satiety.At baseline can't walk uphill. Currently can walk only a half block. Chronic palps stable. Intermitent Le edema currently resolved. Pt. denies numbness/paresthesias in legs, denies chest pain, headaches, visual disturbances and all other neurologic symptoms. Recent CT head is reported "negative" in chart and she has not fallen since. FU : no new issues , Ac on hold BP does fluctuate low 100's to 170's nurse to check orthostatic again now slight tremor --pt states has had for some time, denies ETOH MRI BRAI N reviewed: : Impression: Ischemic changes in the white matter of both cerebral hemispheres sequela most probably to long- standing hypertension or small vessel atherosclerosis. No evidence of acute infarction. No evidence of intra or extra-axial neoplasm. Moderate loss of volume of both the cerebral hemisphere with moderate dilatation of lateral ventricles. Dopplers (-) Home Medications - Allergies Allergies/Adverse Reactions: Allergies Allergy/AdvReac Type Severity Reaction Status Date / Time No Known Allergies Allergy Verified 03/24/17 11:04 - Home Medications Home Medications: Ambulatory Orders Albuterol Sulfate [Proair Respiclick] 90 mcg IAR PRN 03/24/17 Amlodipine Besylate 5 mg PO DAILY 03/24/17 Apixaban [Eliquis] 5 mg PO BID 03/24/17 Benazepril HCl 40 mg PO DAILY 03/24/17 Furosemide 20 mg PO DAILY 03/24/17 Metoprolol Tartrate 25 mg PO BID 03/24/17 Omeprazole 20 mg PO DAILY 03/24/17 Raloxifene HCl 60 mg PO DAILY 03/24/17 Simvastatin 20 mg PO DAILY 03/24/17 Physical Exam-Neuro Vital Signs: Vital Signs Temperature 98.2 F 03/27/17 14:00 Pulse Rate 62 03/27/17 14:00 Respiratory Rate 16 03/27/17 14:00 Blood Pressure 102/54 03/27/17 14:00 O2 Sat by Pulse Oximetry (%) 95 03/27/17 09:00 Labs: CBCD WBC 6.4 K/mm3 (4.0-10.0) 03/27/17 05:35 RBC 3.86 M/mm3 (3.60-5.2) 03/27/17 05:35 Hgb 13.4 GM/dL (10.7-15.3) 03/27/17 05:35 Hct 39.7 % (32.4-45.2) 03/27/17 05:35 MCV 102.8 fl (80-96) H 03/27/17 05:35 MCHC 33.8 g/dl (32.0-36.0) 03/27/17 05:35 RDW 14.1 % (11.6-15.6) 03/27/17 05:35 Plt Count 195 K/MM3 (134-434) 03/27/17 05:35 MPV 9.3 fl (7.5-11.1) 03/27/17 05:35 CMP Sodium 145 mmol/L (136-145) 03/27/17 05:35 Potassium 3.7 mmol/L (3.5-5.1) 03/27/17 05:35 Chloride 108 mmol/L (98-107) H 03/27/17 05:35 Carbon Dioxide 26 mmol/L (21-32) 03/27/17 05:35 Anion Gap 11 (8-16) 03/27/17 05:35 BUN 25 mg/dL (7-18) H D 03/27/17 05:35 Creatinine 0.9 mg/dL (0.55-1.02) 03/27/17 05:35 Creat Clearance w eGFR 52.95 (>60) 03/25/17 05:35 Calcium 8.9 mg/dL (8.5-10.1) 03/27/17 05:35 Total Bilirubin 0.6 mg/dL (0.2-1.0) 03/25/17 05:35 AST 28 U/L (15-37) 03/25/17 05:35 ALT 32 U/L (12-78) 03/25/17 05:35 Alkaline Phosphatase 66 U/L (45-117) 03/25/17 05:35 Total Protein 6.5 g/dl (6.4-8.2) 03/25/17 05:35 Albumin 3.5 g/dl (3.4-5.0) 03/25/17 05:35 - Neuro Exam Dominant Hand: Right Mini Mental Exam: Alert, well oriented, without aphasia. Her concentration is impaired, she tends to forget what she wants to say at times. Rayne recall her phone #, recalls 1/3 objects in 1 and 5 minutes. Cranial Nerves II-XII Intact: No (Slight old left facial droop) DTR's: 0 Left Achilles, 0 Right Achilles, 1+ Left Bicep (+Palmar reflex), 1+ Right Bicep, 1+ Left Tricep, 1+ Right Tricep, 1+ Left Brachioradialis, 1+ Right Brachioradialis Response to light touch: Normal Response to pain prick: Normal Movement Disorders: Tremors -mild postional, mild cogwheel R Motor Strength: 5/5: Right Arm, Left Arm, Left Leg (LLE 5/5 throughout except left quadriceps is 4/5. + bilateral UE postural tremors) Gait: Other (Wide based, unsteady, left foot is slightly externally rotated.) NIH Stroke Scale - Total Score NIH Stroke Scale Score: 0 Assessment/Plan Syncope in setting of a fib; ? orthostatics at play, soft parkinsonian features also may be contributory no signs of new cerebral event, doubt seizures nurse to check orthostatics now, (SUPINE 127/62 HR 60, stand UP 116/78, HR 66 ) and may have to optimize this issue prior restarting AC, BP RX being adjusted VALERIA VASC score apx 4 , considered relatively inc risk for stroke ? new dementia rx started -- though she has no recall of this, avoid aricept given the above issues will not start parkinson RX at this juncture agree with gait rehab --will likely have to reassess after 4 weeks for skilled nursing AC again, in meantime ASA Thank you, Dr Evans [phone]
[2017-03-27] MEDS: ATORVASTATIN CA 10 MG TABLET (FP) PO SCH (21:35)
[2017-03-27] MEDS: ACETAMINOPHEN 325 MG TABLET (FP) PO PRN (21:36)
[2017-03-28 07:49] LABS: MCH 34.4 pg (25.7-33.7); MCHC 33.6 g/dl (32.0-36.0); MEAN CELL VOLUME 102.4 fl (80-96); MEAN PLT VOLUME 9.5 fl (7.5-11.1); PLATELET COUNT 188 K/MM3 (134-434); RDW 14.2 % (11.6-15.6); WHITE BLOOD COUNT 6.2 K/mm3 (4.0-10.0)
[2017-03-28] MEDS: METOPROLOL TARTRATE 25 MG TABLET (FP) PO SCH (09:53)
[2017-03-28] MEDS: HEPARIN NA (PORCINE) 5,000 UNITS/ML 1ML VIAL SQ SCH (09:53)
[2017-03-28] MEDS: PANTOPRAZOLE 20 MG TABLET (FP) PO SCH (09:53)
[2017-03-28] MEDS: amLODIPine BESYLATE 5 MG TABLET (FP) PO SCH (09:54)
[2017-03-28] MEDS: LISINOPRIL 20 MG TABLET (FP) PO SCH (09:54)
[2017-03-28] MEDS: ASPIRIN 81 MG CHEWABLE TABLETS PO SCH (09:54)
[2017-03-28] MEDS: POLYETHYLENE GLYCOL 3350 119 GM BTL PO SCH (09:54)
[2017-03-28] MEDS ORDERED: FUROSEMIDE 20 MG TABLET (FP) PO SCH (10:00)
[2017-03-28 10:53] LABS: URINE APPEARANCE CLEAR; URINE BILIRUBIN NEGATIVE (NEGATIVE); URINE BLOOD NEGATIVE (NEGATIVE); URINE COLOR YELLOW; URINE GLUCOSE (UA) NEGATIVE (NEGATIVE); URINE KETONE NEGATIVE (NEGATIVE); URINE LEUK ESTERASE NEGATIVE (NEGATIVE); URINE NITRITE NEGATIVE (NEGATIVE); URINE PROTEIN NEGATIVE (NEGATIVE); URINE UROBILINOGEN NEGATIVE E.U./dl (0.2-1.0)
--- NOTE | 2017-03-28 11:41 | PN ---
Progress Note, Physician Chief Complaint: see dc summary , at bedside - Current Medication List Current Medications: Active Medications Acetaminophen (Tylenol -) 650 mg PO Q4H PRN PRN Reason: FEVER OR PAIN Last Admin: 03/27/17 21:36 Dose: 650 mg Albuterol Sulfate (Ventolin 0.083% Nebulizer Soln -) 1 amp NEB Q4H PRN PRN Reason: SHORT OF BREATH/WHEEZING Amlodipine Besylate (Norvasc -) 5 mg PO DAILY [facility] Last Admin: 03/28/17 09:54 Dose: 5 mg Aspirin (Asa -) 81 mg PO DAILY [facility] Last Admin: 03/28/17 09:54 Dose: 81 mg Atorvastatin Calcium (Lipitor -) 10 mg PO HS [facility] Last Admin: 03/27/17 21:35 Dose: 10 mg Furosemide (Lasix -) 20 mg PO DAILY [facility] Last Admin: 03/28/17 09:54 Dose: 20 mg Heparin Sodium (Porcine) (Heparin -) 5,000 unit SQ BID [facility] Last Admin: 03/28/17 09:53 Dose: 5,000 unit Lisinopril (Prinivil) 40 mg PO DAILY [facility] Last Admin: 03/28/17 09:54 Dose: 40 mg Metoprolol Tartrate (Lopressor -) 12.5 mg PO BID [facility] Last Admin: 03/28/17 09:53 Dose: 12.5 mg Pantoprazole Sodium (Protonix -) 20 mg PO DAILY [facility] Last Admin: 03/28/17 09:53 Dose: 20 mg Polyethylene Glycol (Miralax (For Daily Use) -) 17 gm PO DAILY [facility] Last Admin: 03/28/17 09:54 Dose: Not Given - Objective Vital Signs: Vital Signs Temperature 98.3 F 03/28/17 09:00 Pulse Rate 63 03/28/17 09:00 Respiratory Rate 20 03/28/17 09:00 Blood Pressure 154/68 03/28/17 09:00 O2 Sat by Pulse Oximetry (%) 96 03/28/17 09:00 Labs: CBC, BMP 03/28/17 05:38 03/27/17 05:35 Problem List - Problems (1) Failure to thrive in adult Code(s): R62.7 - ADULT FAILURE TO THRIVE (2) Frequent falls Code(s): R29.6 - REPEATED FALLS (3) Afib Code(s): I48.91 - UNSPECIFIED ATRIAL FIBRILLATION (4) Unsteady gait Code(s): R26.81 - UNSTEADINESS ON FEET
--- NOTE | 2017-03-28 12:30 | PN ---
Progress Note (short form) - Note Progress Note: Chief Complaint: syncope History of Present Illness: no cp, sob, palpitations, presyncope. + ambulation. remains unsteady. + confusion. ex cigs Current Medications Acetaminophen (Tylenol -) 650 mg PO Q4H PRN PRN Reason: FEVER OR PAIN Last Admin: 03/27/17 21:36 Dose: 650 mg Albuterol Sulfate (Ventolin 0.083% Nebulizer Soln -) 1 amp NEB Q4H PRN PRN Reason: SHORT OF BREATH/WHEEZING Amlodipine Besylate (Norvasc -) 5 mg PO DAILY [facility] Last Admin: 03/28/17 09:54 Dose: 5 mg Aspirin (Asa -) 81 mg PO DAILY [facility] Last Admin: 03/28/17 09:54 Dose: 81 mg Atorvastatin Calcium (Lipitor -) 10 mg PO HS [facility] Last Admin: 03/27/17 21:35 Dose: 10 mg Furosemide (Lasix -) 20 mg PO DAILY [facility] Last Admin: 03/28/17 09:54 Dose: 20 mg Heparin Sodium (Porcine) (Heparin -) 5,000 unit SQ BID [facility] Last Admin: 03/28/17 09:53 Dose: 5,000 unit Lisinopril (Prinivil) 40 mg PO DAILY [facility] Last Admin: 03/28/17 09:54 Dose: 40 mg Metoprolol Tartrate (Lopressor -) 12.5 mg PO BID [facility] Last Admin: 03/28/17 09:53 Dose: 12.5 mg Pantoprazole Sodium (Protonix -) 20 mg PO DAILY [facility] Last Admin: 03/28/17 09:53 Dose: 20 mg Polyethylene Glycol (Miralax (For Daily Use) -) 17 gm PO DAILY [facility] Last Admin: 03/28/17 09:54 Dose: Not Given Vital Signs - 24 hr 03/27/17 03/27/17 03/27/17 14:00 17:00 20:03 Temperature 98.2 F 98.0 F Pulse Rate 62 72 Pulse Rate [ 68 Right side Sitting] Pulse Rate [ 66 Right side Standing] Pulse Rate [ 60 Right side Supine] Respiratory 16 18 Rate Blood Pressure 102/54 108/54 Blood Pressure 122/57 [Right side Sitting] Blood Pressure 116/78 [Right side Standing] Blood Pressure 127/62 [Right side Supine] O2 Sat by Pulse Oximetry (%) 03/27/17 03/28/17 03/28/17 21:00 00:24 01:00 Temperature 97.4 F L 97.9 F Pulse Rate 74 Pulse Rate [ Right side Sitting] Pulse Rate [ Right side Standing] Pulse Rate [ Right side Supine] Respiratory 18 18 Rate Blood Pressure 156/76 Blood Pressure [Right side Sitting] Blood Pressure [Right side Standing] Blood Pressure [Right side Supine] O2 Sat by Pulse 95 Oximetry (%) 03/28/17 03/28/17 05:00 09:00 Temperature 98.8 F 98.3 F Pulse Rate 66 78 Pulse Rate [ 68 Right side Sitting] Pulse Rate [ 66 Right side Standing] Pulse Rate [ 63 Right side Supine] Respiratory 20 20 Rate Blood Pressure 142/64 154/68 Blood Pressure 155/79 [Right side Sitting] Blood Pressure 151/69 [Right side Standing] Blood Pressure 154/68 [Right side Supine] O2 Sat by Pulse 96 Oximetry (%) Intake & Output 03/26/17 03/27/17 03/28/17 03/29/17 07:59 07:59 07:59 07:59 Intake Total 200 410 580 300 Balance 200 410 580 300 Constitutional: Yes: No Distress, Calm Eyes: No: Sclera Icterus HENT: No: Nasal Congestion Cardiovascular: Yes: Regular Rate and Rhythm, S1, S2, Other (PMI non diplaced). No: Gallop, Murmur Respiratory: Yes: CTA Bilaterally. No: Accessory Muscle Use, Rales, Wheezes Gastrointestinal: Yes: Normal Bowel Sounds, Soft. No: Tenderness Musculoskeletal: Yes: Other (No kyphosis) Extremities: No: Cold Edema: No Integumentary: No: Jaundice Neurological: Yes: Alert, Oriented (x3) Psychiatric: No: Agitated Labs: CBC, BMP 03/28/17 05:38 03/27/17 05:35 Laboratory Tests 03/27/17 05:35 B-Natriuretic Peptide 617.10 H - ....Imaging EKG: Other (tele: AF good HRs (50's-60's at times)) echo here: basal septal hypertrophy. nl lv/rv size/fn. sev christian. 1+ mac. mod mr /tr. rvsp 30-40 Assessment/Plan 81 yo with h/o of afib on eliquis, htn, asthma who presents s/p fall/syncope. fall/syncope - provides hx of mult (3) recent falls--once with fleeting prodrome "something not right", twice no prodrome--all 3 occurred when kathie from recliner or bed during nocturnal hours, ? if was asleep at the time (unwitnessed), with no head trauma on those occasions to suggest concussion with retrograde amnesia - approx 4-5 wks ago in [place] started on new dementia med - statistically this is most likely orthostatic hypotension although orthostatic vitals have been negative here, ? exacerbated by recent med changes - soft parkinsonian features --> possible contribution, neuro following - carotids unremarkable, MRI brain no acute infarct or bleed - echo with basal septal hypertrophy, but no mention of assessment for LVOT obstruction. - tele monitoring unremarkable thus far except for occasional SVR (no pathologic bradyarrhythmias). consider outpt 30 day event monitor poor balance: - chronic problem, uses cane--worsened of late per niece and , began using walker at home - syncope's are likely unrelated to balance, however clearly has falls risk. PT following. afib - rate controlled on home metoprolol (lopressor 25 bid), rarely 50s during afternoon as well as early am. very unlikely contributing to syncope but decreased to to lopressor 12.5 bid. can consider eval for event monitor as outpatient. - eliquis held here, while w/u for cause of repeated recent falls/syncope is ongoing - per prior notes. pmd has had discussion with family regarding risk/benefit of AC in setting of fall risk and plan is to defer AC. Would give low dose ASA instead. - can consider [place] appendage closure (Watchman) down the road if safe falls environment can be guaranteed during 6 wks of AC, then 6 wks of DAPT post- procedure - pt and family advised by me should f/u with us after hospital d/c for ongoing reassessment of AC and falls risk, they verbalize understanding HTN - mostly controlled here - same meds (amlodipine, NEDRA, metoprolol (dose decreased here) HL - statin per home regimen diastolic heart failure exacerbation - presented with minimal volume overload on exam but + sx's on hx ( orthopnea, sanhcez, early satiety). Elevated bnp. - s/p gentle diuresis with IV lasix. BP/BMP remained stable. Appears euvolemic today, asx. Outpatient PO lasix dose resumed.
--- NOTE | 2017-03-28 15:16 | DS ---
Physical Examination Vital Signs: Vital Signs Temperature 98.3 F 03/28/17 09:00 Pulse Rate 63 03/28/17 09:00 Respiratory Rate 20 03/28/17 09:00 Blood Pressure 154/68 03/28/17 09:00 O2 Sat by Pulse Oximetry (%) 96 03/28/17 09:00 Constitutional: Yes: No Distress, Calm Cardiovascular: Yes: Pulse Irregular Respiratory: Yes: CTA Bilaterally Gastrointestinal: Yes: Normal Bowel Sounds, Soft, Abdomen, Obese. No: Tenderness Edema: No Psychiatric: Yes: Alert, Oriented Labs: CBC, BMP 03/28/17 05:38 03/27/17 05:35 Discharge Summary Reason For Visit: FAILURE TO THRIVE IN ADULT Current Active Problems Afib (Acute) Failure to thrive in adult (Acute) Frequent falls (Acute) Unsteady gait (Acute) Hospital Course: Admitted for frequent falls- pt on Eliquis She was seen by Neurology and Cardiology-- Carotid doppler-- negative for stenosis, MRI brain - no acute ischemia Fall due to orthostatsis and possible dementia meds that she was started on recently. per Cardio note-- fall/syncope - provides hx of mult (3) recent falls--once with fleeting prodrome "something not right", twice no prodrome--all 3 occurred when kathie from recliner or bed during nocturnal hours, ? if was asleep at the time (unwitnessed), with no head trauma on those occasions to suggest concussion with retrograde amnesia - approx 4-5 wks ago in [place] started on new dementia med - statistically this is most likely orthostatic hypotension although orthostatic vitals have been negative here, ? exacerbated by recent med changes - possible contribution from parkinson features?, neuro following - carotids unremarkable, MRI brain no acute infarct or bleed - echo with basal septal hypertrophy, but no mention of assessment for LVOT obstruction. - tele monitoring unremarkable thus far except for SVR. consider outpt 30 day event monitor poor balance: - chronic problem, uses cane--worsened of late per niece and , began using walker at home - syncope's are likely unrelated to balance, however the extent of her falls risk related to poor balance remains undefined afib - rate controlled on home metoprolol (lopressor 25 bid), rarely 50s during afternoon as well as early am. very unlikely contributing to syncope but decreased to to lopressor 12.5 bid - eliquis held here, while w/u for cause of repeated recent falls/syncope is ongoing - if P.T. finds significant gait imbalance and feels she is at high risk for falls, may need to cont holding AC until she does adequate rehab/precautions are in place and she is deemed stable - can consider LA appendage closure (Watchman) if safe falls environment can be guaranteed during 6 wks of AC, then 6 wks of DAPT post-procedure--defer for now while assess clinical course and findings here - pt and family advised by me should f/u with us after hospital d/c for ongoing reassessment of AC and falls risk, they verbalize understanding HTN - mostly controlled here - same meds (amlodipine, NEDRA) HL - statin per home regimen diastolic HR exacerbation - s/p diuresis with IV lasix. She will need gait training and rehab for frequent falls-- she will be reassessed for need for AC-- for now she will be on ASA After her STR, she will need to follow up with Dr Tellez - cardiology upon discharge. Condition: Improved - Instructions Referrals: Mario Tellez MD [Staff Physician] - 3 Weeks (follow up with Dr Tellez upon discharge from [facility]. ) Blaise Mcdonnell MD [Primary Care Provider] - (follow up with Dr Mcdonnell up dischrage from long term ) Disposition: HALF-WAY FACILITY - Home Medications Comprehensive Discharge Medication List: Ambulatory Orders Albuterol Sulfate [Proair Respiclick] 90 mcg IAR PRN 03/24/17 Amlodipine Besylate 5 mg PO DAILY 03/24/17 Benazepril HCl 40 mg PO DAILY 03/24/17 Furosemide 20 mg PO DAILY 03/24/17 Metoprolol Tartrate 25 mg PO BID 03/24/17 Omeprazole 20 mg PO DAILY 03/24/17 Raloxifene HCl 60 mg PO DAILY 03/24/17 Simvastatin 20 mg PO DAILY 03/24/17 Acetaminophen [Tylenol .Regular Strength -] 650 mg PO Q4H PRN #0 tablet Albuterol 0.083% Nebulizer Wendie [Ventolin 0.083% Nebulizer Soln -] 1 amp NEB Q4H PRN #30 amp 03/28/17 Aspirin [ASA -] 81 mg PO DAILY #60 tab.chew 03/28/17 Metoprolol Tartrate [Lopressor -] 12.5 mg PO BID #60 tablet 03/28/17 Polyethylene Glycol 3350 [Miralax 119 gm Btl -] 17 gm PO DAILY #1 bottle
[2017-03-28] MEDS ORDERED: DOCUSATE SODIUM 100 MG CAPSULE (FP) PO SCH (15:30)
[2017-03-28] MEDS ORDERED: POLYETHYLENE GLYCOL 3350 119 GM BTL PO SCH (15:30)
--- NOTE | 2017-03-28 17:30 | PN ---
Progress Note (short form) - Note Progress Note: Progress Note: HPI: 81 yo with h/o of afib on eliquis, htn, asthma who presents s/p fall/ syncope. Eliquis discontinued in hospital. Patient reports shes had 3 falls in the past 2 weeks. She reports 2 years ago she perceived unsteadiness of gait and started using a cane. She describes first falling 2 weeks ago, "felt dizzy and fell forwards, it ocurred twice subsequently, after fall there was no confusion/incontinence.All episodes appear to be syncopal with no prodrome. She also reports worsened weakness since February with + orthopnea (cough with lying down), worsened chronic sanchez and early satiety.At baseline can't walk uphill. Currently can walk only a half block. Chronic palps stable. Intermitent Le edema currently resolved. Pt. denies numbness/paresthesias in legs, denies chest pain, headaches, visual disturbances and all other neurologic symptoms. Recent CT head is reported "negative" in chart and she has not fallen since. FU : no new issues , Ac on hold slated for DC bedside, HX of tremor 40 yrs as per family MRI BRAI N: : Impression: Ischemic changes in the white matter of both cerebral hemispheres sequela most probably to long- standing hypertension or small vessel atherosclerosis. No evidence of acute infarction. No evidence of intra or extra-axial neoplasm. Moderate loss of volume of both the cerebral hemisphere with moderate dilatation of lateral ventricles. Dopplers (-) Home Medications - Allergies Allergies/Adverse Reactions: Allergies Allergy/AdvReac Type Severity Reaction Status Date / Time No Known Allergies Allergy Verified 03/24/17 11:04 - Home Medications Home Medications: Ambulatory Orders Albuterol Sulfate [Proair Respiclick] 90 mcg IAR PRN 03/24/17 Amlodipine Besylate 5 mg PO DAILY 03/24/17 Apixaban [Eliquis] 5 mg PO BID 03/24/17 Benazepril HCl 40 mg PO DAILY 03/24/17 Furosemide 20 mg PO DAILY 03/24/17 Metoprolol Tartrate 25 mg PO BID 03/24/17 Omeprazole 20 mg PO DAILY 03/24/17 Raloxifene HCl 60 mg PO DAILY 03/24/17 Simvastatin 20 mg PO DAILY 03/24/17 Physical Exam-Neuro Vital Signs: Vital Signs Temperature 98.3 F 03/28/17 09:00 Pulse Rate 63 03/28/17 09:00 Respiratory Rate 20 03/28/17 09:00 Blood Pressure 154/68 03/28/17 09:00 O2 Sat by Pulse Oximetry (%) 96 03/28/17 09:00 Labs: CBCD WBC 6.4 K/mm3 (4.0-10.0) 03/27/17 05:35 RBC 3.86 M/mm3 (3.60-5.2) 03/27/17 05:35 Hgb 13.4 GM/dL (10.7-15.3) 03/27/17 05:35 Hct 39.7 % (32.4-45.2) 03/27/17 05:35 MCV 102.8 fl (80-96) H 03/27/17 05:35 MCHC 33.8 g/dl (32.0-36.0) 03/27/17 05:35 RDW 14.1 % (11.6-15.6) 03/27/17 05:35 Plt Count 195 K/MM3 (134-434) 03/27/17 05:35 MPV 9.3 fl (7.5-11.1) 03/27/17 05:35 CMP Sodium 145 mmol/L (136-145) 03/27/17 05:35 Potassium 3.7 mmol/L (3.5-5.1) 03/27/17 05:35 Chloride 108 mmol/L (98-107) H 03/27/17 05:35 Carbon Dioxide 26 mmol/L (21-32) 03/27/17 05:35 Anion Gap 11 (8-16) 03/27/17 05:35 BUN 25 mg/dL (7-18) H D 03/27/17 05:35 Creatinine 0.9 mg/dL (0.55-1.02) 03/27/17 05:35 Creat Clearance w eGFR 52.95 (>60) 03/25/17 05:35 Calcium 8.9 mg/dL (8.5-10.1) 03/27/17 05:35 Total Bilirubin 0.6 mg/dL (0.2-1.0) 03/25/17 05:35 AST 28 U/L (15-37) 03/25/17 05:35 ALT 32 U/L (12-78) 03/25/17 05:35 Alkaline Phosphatase 66 U/L (45-117) 03/25/17 05:35 Total Protein 6.5 g/dl (6.4-8.2) 03/25/17 05:35 Albumin 3.5 g/dl (3.4-5.0) 03/25/17 05:35 - Neuro Exam Dominant Hand: Right Mini Mental Exam: Alert, well oriented, without aphasia. Her concentration is impaired, she tends to forget what she wants to say at times. Rayne recall her phone #, recalls 1/3 objects in 1 and 5 minutes. Cranial Nerves II-XII Intact: No (Slight old left facial droop) DTR's: 0 Left Achilles, 0 Right Achilles, 1+ Left Bicep (+Palmar reflex), 1+ Right Bicep, 1+ Left Tricep, 1+ Right Tricep, 1+ Left Brachioradialis, 1+ Right Brachioradialis Response to light touch: Normal Response to pain prick: Normal Movement Disorders: Tremors -mild postional, mild cogwheel R Motor Strength: 5/5: Right Arm, Left Arm, Left Leg (LLE 5/5 throughout except left quadriceps is 4/5. + bilateral UE postural tremors) Gait: Other (Wide based, unsteady, left foot is slightly externally rotated.) NIH Stroke Scale - Total Score NIH Stroke Scale Score: 0 Assessment/Plan Syncope in setting of a fib; ? 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
[2017-03-28 19:14] VITALS: BP 125/64; PULSE 70; TEMP 98
== END 2017-03-28 20:38 | DRG 640 ==
LOC: JER 10:49 → INTOOBSV 12:40 → UNDOADMOB 12:40 → JERBED 12:40 → J5S 16:10 → J4W 23:32 → OBSVTOIN 03-25 15:11
PROVIDERS: ADMIT Internal Medicine; ATTEND Internal Medicine
DX: R62.7 Adult failure to thrive (principal); I50.31 Acute diastolic (congestive) heart failure; I48.91 Unspecified atrial fibrillation; J45.909 Unspecified asthma, uncomplicated; R55 Syncope and collapse; E78.5 Hyperlipidemia, unspecified; R29.6 Repeated falls; R26.81 Unsteadiness on feet; I11.0 Hypertensive heart disease with heart failure; Z87.891 Personal history of nicotine dependence
CPT/HCPCS: 36415; 70551-TC; 71010-TC; 80048; 80053; 81003; 81015; 82550; 82553; 82607; 83880; 84443; 84484; 85025; 85027; 85730; 93005; 93010; 93306-TC; 93880-TC; 97116-GP; 97161-GP; 99285-25; G0378; J1644